=== PATIENT | male | born 1950 | race Caucasian/White ===

== ENCOUNTER 2020-08-17 01:57 | Emergency (ER) | payer BC, MEDICARE, OTHER ==
[2020-08-17] MEDS ORDERED: Lidocaine 2% Jelly 10 ML Urojet MUCMEM ONE (01:59)
--- NOTE | 2020-08-17 02:30 | EDM.PDOC ---
ED HPI GENERAL MEDICAL PROBLEM - General Chief Complaint: Genitourinary Problem Stated Complaint: MEDICAL [facility] Time Seen by Provider: 08/17/20 02:24 Source of Information: Reports: Patient, RN Notes Reviewed History Limitations: Reports: No Limitations - History of Present Illness INITIAL COMMENTS - FREE TEXT/NARRATIVE: 69-year-old gentleman presents emergency department with a complaint of urinary retention, he does have a history of neurogenic bladder he self cath usually 4 times a day he has been unable to pass his catheter does have abdominal distention and pain also has been feeling somewhat weak and ill no fevers - Related Data Allergies Allergy/AdvReac Type Severity Reaction Status Date / Time No Known Allergies Allergy Verified 08/22/14 09:47 Home Meds: Home Meds buPROPion [Wellbutrin SR] 150 mg PO DAILY 08/22/14 [History] Carbidopa/Levodopa [Carbidopa-Levo ER 25-100] 1 tab PO DAILY 08/17/20 [History] Hydroxyurea 500 mg PO DAILY 08/17/20 [History] Levothyroxine [Synthroid] 50 mcg PO DAILY 08/17/20 [History] atorvaSTATin [Lipitor] 80 mg PO BEDTIME 08/17/20 [History] Past Medical History Cardiovascular History: Reports: CAD, [place] Genitourinary History: Reports: Neurogenic Bladder Neurological History: Reports: Parkinson's Endocrine/Metabolic History: Reports: Hypothyroidism Hematologic History: Reports: Polycythemia Oncologic (Cancer) History: Reports: Other (See Below) Other Oncologic History: blood cancer - Infectious Disease History Infectious Disease History: Reports: Chicken Pox, Measles, Mumps - Past Surgical History Musculoskeletal Surgical History: Reports: Other (See Below) Other Musculoskeletal Surgeries/Procedures:: back surgery Social & Family History - Tobacco Use Tobacco Use Status *Q: Never Tobacco User - Caffeine Use Caffeine Use: Reports: Coffee, Soda, Tea - Recreational Drug Use Recreational Drug Use: No ED ROS GENERAL - Review of Systems Review Of Systems: See Below Constitutional: Reports: Weakness. Denies: Fever, Chills HEENT: Reports: No Symptoms Respiratory: Reports: No Symptoms Cardiovascular: Reports: No Symptoms GI/Abdominal: Reports: Abdominal Pain : Reports: Urinary Retention ED EXAM, RENAL/ - Physical Exam Exam: See Below Exam Limited By: No Limitations General Appearance: Alert, WD/WN, No Apparent Distress Respiratory/Chest: No Respiratory Distress GI/Abdominal: Soft, Non-Tender Course - Vital Signs Last Recorded V/S: Last Vital Signs Temp 97.8 F 08/17/20 02:00 Pulse 92 08/17/20 02:00 Resp 18 08/17/20 02:00 BP 161/97 H 08/17/20 02:00 Pulse Ox 94 L 08/17/20 02:00 - Orders/Labs/Meds Orders: Active Orders 24 hr Category Date Time Status Bladder Scan [RC] ASDIRECTED Care 08/17/20 01:58 Active Garay Catheter Insertion [Insert Urinary Catheter] [OM. Care 08/17/20 02:00 Ordered PC] Q24H Urinary Catheter Assessment [RC] ASDIRECTED Care 08/17/20 01:59 Active CULTURE URINE [RM] Urgent Lab 08/17/20 02:57 Ordered Labs: Laboratory Tests 08/17/20 Range/Units 02:20 Urine Color Yellow (YELLOW) Urine Appearance Slightly cloudy A (CLEAR) Urine pH 6.5 (5.0-8.0) Ur Specific [place] 1.015 (1.008-1.030) Urine Protein Negative (NEGATIVE) mg/dL Urine Glucose (UA) Negative (NEGATIVE) mg/dL Urine Ketones Negative (NEGATIVE) mg/dL Urine Occult Blood Moderate H (NEGATIVE) Urine Nitrite Negative (NEGATIVE) Urine Bilirubin Negative (NEGATIVE) Urine Urobilinogen 0.2 (0.2-1.0) EU/dL Ur Leukocyte Esterase Small H (NEGATIVE) Urine RBC 10-20 H (0-5) Urine WBC 5-10 H (0-5) Ur Epithelial Cells Not seen Amorphous Sediment Many Urine Bacteria Few Urine Mucus Not seen Meds: Medications Discontinued Medications Generic Name Dose Route Start Last Admin Trade Name Juveq PRN Reason Stop Dose Admin Lidocaine HCl 10 ml 08/17/20 01:59 08/17/20 02:11 Xylocaine 2% Jelly MUCMEM 08/17/20 02:00 10 ml ONETIME ONE Administration Departure - Departure Time of Disposition: 03:01 Disposition: Home, Self-Care 01 Condition: Fair Clinical Impression: UTI, Urinary tract infectious disease, Retention of urine - Discharge Information Instructions: Urinary Tract Infection, Adult, [id number], Acute Urinary Retention, Male, [id number] Referrals: PCP,None [Primary Care Provider] - Forms: ED Department Discharge Additional Instructions: Take full course of antibiotics, continue to use the leg bag for comfort until reevaluated by primary care upon return home call or return to the emergency department worsening of symptoms Sepsis Event Note (ED) - Evaluation Sepsis Screening Result: No Definite Risk - Focused Exam Vital Signs: Vital Signs Temp Pulse Resp BP Pulse Ox 08/17/20 02:00 97.8 F 92 18 161/97 H 94 L - My Orders Last 24 Hours: My Active Orders 08/17/20 01:58 Bladder Scan [RC] ASDIRECTED 08/17/20 01:59 Urinary Catheter Assessment [RC] ASDIRECTED 08/17/20 02:00 Garay Catheter Insertion [Insert Urinary Catheter] [OM.PC] Q24H 08/17/20 02:57 CULTURE URINE [RM] Urgent - Assessment/Plan Last 24 Hours: My Active Orders 08/17/20 01:58 Bladder Scan [RC] ASDIRECTED 08/17/20 01:59 Urinary Catheter Assessment [RC] ASDIRECTED 08/17/20 02:00 Garay Catheter Insertion [Insert Urinary Catheter] [OM.PC] Q24H 08/17/20 02:57 CULTURE URINE [RM] Urgent Plan: Assessment Acuity = acute Site and laterality = urinary tract infection with urinary retention complicated in a gentleman with known history of nephrogenic bladder Etiology = unknown Manifestations = none Location of injury = Home Lab values = urinalysis reveals 10-20 RBCs consistent with hematuria 5-10 WBCs consistent with pyuria small amount leukocyte Estrace cultures pending Plan Elect to treat empirically Bactrim DS 1 tab p.o. twice daily x10 days follow-up with primary care upon return home This note was dictated using [employer] voice recognition software please call with any questions on syntax or grammar.
[2020-08-17] MEDS ORDERED: Lactated Ringers 1,000 ML IV SCH (03:53)
== END 2020-08-17 04:57 | disposition home or self-care (01) ==
LOC: JP.ED 01:57
DX: R33.9 Retention of urine, unspecified (principal); N39.0 Urinary tract infection, site not specified; I25.10 Atherosclerotic heart disease of native coronary artery without angina pectoris; I25.2 Old myocardial infarction; E03.9 Hypothyroidism, unspecified; G20 Parkinson's disease; Z79.899 Other long term (current) drug therapy
CPT/HCPCS: 36415; 51702; 51798; 80053; 81001; 83605; 85025; 87086; 87088; 87186; 99283; J7120